=== PATIENT | male | born 1960 | race Caucasian/White ===

== ENCOUNTER 2024-02-10 12:33 | Emergency (ER) | payer BC, OTHER ==
[~2024-02-10] VITALS: Ht 177.8 cm; Wt 86.9 kg
[2024-02-10 13:46] VITALS: BP 170/95; PULSE 62; RESP 18; TEMP 98.4; O2SAT 97
[2024-02-10] MEDS: LIDOCAINE 1% HCL (LOCAL ANESTH.) INJ 20ML MDV IJ ONE (13:53)
[2024-02-10] MEDS: TETANUS-DIPTH-ACEL PERTUSSIS 0.5ML SYR Tdap IM ONE (14:19)
[2024-02-10] MEDS ORDERED: IBUP-1456 PO (14:50)
[2024-02-10] MEDS ORDERED: CEPH500C PO (14:50)
== END 2024-02-10 14:54 | disposition home or self-care (01) ==
LOC: ER 12:33
DX: S61.001A Unspecified open wound of right thumb without damage to nail, initial encounter (principal); Z91.040 Latex allergy status; Z79.1 Long term (current) use of non-steroidal anti-inflammatories (NSAID); W27.0XXA Contact with workbench tool, initial encounter; Y93.89 Activity, other specified; Y92.89 Other specified places as the place of occurrence of the external cause; Y99.8 Other external cause status
CPT/HCPCS: 73140; 90471; 90715; 99283; J2001